=== PATIENT | female | born 1960 | race Caucasian/White ===

== ENCOUNTER 2018-07-28 05:04 | Day surgery (SDC) | payer BC, MEDICARE ==
[2018-07-13 11:38] VITALS: BMI 26.2
[2018-07-28] MEDS ORDERED: MIDAZOLAM HCL 2 MG/2 ML SINGLE DOSE VIAL ONE (14:06)
[2018-07-28] MEDS ORDERED: PROPOFOL 20 ML ONE (14:10)
[2018-07-28] MEDS ORDERED: ceFAZolin SODIUM 1 GM VIAL ONE (14:28)
--- NOTE | 2018-07-28 15:00 | HP ---
Admitting History and Physical - Admission Chief Complaint: Pt here for phlebectomy of varicose veins left lower ext Limitations to Obtaining History: No Limitations - Smoking History Smoking history: Never smoked Have you smoked in the past 12 months: No - Alcohol/Substance Use Hx Alcohol Use: No Home Medications - Allergies Allergies/Adverse Reactions: Allergies Allergy/AdvReac Type Severity Reaction Status Date / Time No Known Allergies Allergy Verified 07/28/18 12:07 - Home Medications Home Medications: Ambulatory Orders Ergocalciferol (Vitamin D2) [Vitamin D2] 25,000 unit PO WEEKLY 01/12/18 Lisinopril/Hydrochlorothiazide [Lisinopril-Hctz 10-12.5 mg Tab] 12.5 mg PO HS Metformin HCl 1,000 mg PO BID 01/12/18 Cyanocobalamin Vit B-12 Inj. [Redisol] 1,000 mcg IM MONTHLY 07/13/18 Review of Systems - Review of Systems Constitutional: reports: No Symptoms Eyes: reports: No Symptoms HENT: reports: No Symptoms Neck: reports: No Symptoms Cardiovascular: reports: No Symptoms Respiratory: reports: No Symptoms Gastrointestinal: reports: No Symptoms Genitourinary: reports: No Symptoms Breasts: reports: No Symptoms Reported Musculoskeletal: reports: No Symptoms Integumentary: reports: No Symptoms Neurological: reports: No Symptoms Endocrine: reports: No Symptoms Hematology/Lymphatic: reports: No Symptoms Psychiatric: reports: No Symptoms Physical Examination Vital Signs: Vital Signs Temperature 97.5 F L 07/28/18 11:51 Pulse Rate 64 07/28/18 11:51 Respiratory Rate 18 07/28/18 11:51 Blood Pressure 121/74 07/28/18 11:51 O2 Sat by Pulse Oximetry (%) 99 07/28/18 11:52 Constitutional: Yes: Well Nourished, No Distress, Calm Eyes: Yes: WNL, Conjunctiva Clear, EOM Intact HENT: Yes: WNL, Atraumatic, Normocephalic Neck: Yes: WNL, Supple, Trachea Midline Cardiovascular: Yes: WNL, Regular Rate and Rhythm Respiratory: Yes: WNL, Regular, CTA Bilaterally Gastrointestinal: Yes: WNL, Normal Bowel Sounds Musculoskeletal: Yes: WNL Extremities: Yes: WNL, Other (left lower ext varicose veins) Edema: No Integumentary: Yes: WNL Neurological: Yes: WNL, Alert, Oriented ...Motor Strength: WNL Psychiatric: Yes: WNL Problem List - Problems (1) Varicose veins of left leg with edema Assessment/Plan: For phlebectomy of left lower ext varicose veins Code(s): I83.892 - VARICOSE VEINS OF L LOW EXTREM WITH OTHER COMPLICATIONS
--- NOTE | 2018-07-28 15:02 | OP ---
Operative Note - Note: Operative Date: 07/28/18 Pre-Operative Diagnosis: left lower extremity varicose veins with edema Operation: Stab phlebectomy left lower extremity - 5 stabs Post-Operative Diagnosis: Same as Pre-op Surgeon: Jesse Lepe Anesthesia: Fractional Estimated Blood Loss (mls): 50 Operative Report Dictated: Yes
[2018-07-28] MEDS ORDERED: ACETAMINOPHEN 1000 MG/100 ML VIAL (NON FORMULARY) IVPB ONE (16:07)
[2018-07-28] MEDS ORDERED: ONDANSETRON 4 MG/2 ML VIAL IVPUSH PRN (16:08)
[2018-07-28] MEDS ORDERED: LACTATED RINGERS SOLUTION 1,000 ML IV SCH (16:15)
[2018-07-28 20:38] VITALS: BP 125/68; PULSE 68; TEMP 97.6
--- NOTE | 2018-07-30 11:47 | OP ---
DATE OF OPERATION: 07/28/2018 PREOPERATIVE DIAGNOSIS: Left lower extremity varicose veins. POSTOPERATIVE DIAGNOSIS: Left lower extremity varicose veins. PROCEDURE: Stab phlebectomy, left lower extremity varicose veins, a total of 5 stabs. SURGEON: Jesse Pearce DO ANESTHESIA: Fractional. BLOOD LOSS: 30 mL. The patient is a 58-year-old female that has left lower extremity varicose veins that need phlebectomy. Patient came into ambulatory surgery. Patient was consented for the procedure. Understanding all risks, benefits and alternatives was then taken to the operating room. Once in the operative suite was placed on the operating table in the supine manner. Prior to going into the operating room we had the patient stand up in the holding area and using a skin marker we marked the varicose veins that needed to be removed. Once patient was laid down on the operating room table the area of the left lower extremity was prepped and draped in a sterile surgical manner. Patient then received general anesthesia. We then went ahead and used a No. 11 blade and we were able to make a stab over the varicose veins and using a vein hook the vein was removed and using mosquito clamps and clamps we were able to remove the veins and the veins were sent to Pathology. In this manner we made a total of 5 stab incisions and the varicose veins were removed. Pressure was held over each stab and once there was no more bleeding the area was wet and dried and we went ahead and placed 5 Steri-Strips. We then placed 4 x 4's, Kerlix and Casper bandage. Patient tolerated the procedure with no complication. Patient transferred to PACU in stable condition. Total blood loss 50 mL. JESSE PEARCE DO MONOGRAM TECHNICIAN/[id number]
--- NOTE | 2018-08-01 18:28 | PATH ---
Surgical Pathology Report Patient Name: MARYLU HULL [facility]. Rec. #: [id number] /Age/Gender: 1960 (Age: 58) / F Account: [id number] Location: [facility] Taken: 07/29/2018 Received: 07/29/2018 Reported: 08/01/2018 Physicians: Jesse Lepe Specimen(s) Received VEINS FROM LEFT LOWER EXTREMITIES Clinical History Varicose veins left lower extremity Final Diagnosis VEINS, LOWER EXTREMITY, LEFT, PHLEBECTOMY: VEINS WITH MILD INTIMAL HYPERTROPHY. Electronically Signed Melia Luke M.D. Gross Description Received in formalin labeled "veins left lower extremity," are 3 rome soft tissue fragments ranging from 0.3-0.6 cm in greatest dimension, possibly consistent with portions of vein. The specimen is submitted in toto in one cassette. DL/[id number]/[id number]
== END 2018-07-28 18:00 | disposition home or self-care (01) ==
LOC: JASU-SURG 05:04
PROVIDERS: ATTEND Surgery Vascular Surgery
PROC: 06BY0ZZ Excision of Lower Vein, Open Approach (ICD-10-PCS; principal; 2018-07-28 14:00)
DX: I83.812 Varicose veins of left lower extremity with pain (principal)
CPT/HCPCS: 82962; 86850; 86900; 86901; 88304-TC; 94760; J0131